=== PATIENT | male | born 1980 | race Caucasian/White ===

== ENCOUNTER 2020-05-26 17:30 | Outpatient (REF) | payer SELFPAY | END 2020-05-26 17:31 | disposition home or self-care (01) | LOC: HO.LAB 17:30 | PROVIDERS: Visit Provider Internal Medicine | DX: Z20.828 Contact with and (suspected) exposure to other viral communicable diseases (principal) | CPT/HCPCS: U0003 ==

== ENCOUNTER 2021-02-09 12:35 | Outpatient (REF) | payer OTHER, SELFPAY ==
[2021-02-09 14:16] LABS: MANUAL DIFF FLAG NO
[2021-02-09 14:21] LABS: Basophils Percent Auto 0.4 % (0-2); Eosinophils Percent Auto 0.4 % (0-4); Hematocrit 45.7 % (42-52); Hemoglobin 15.8 g/dl (14.0-18.0); Imm Gran Abs Auto 0.08 X10*3/uL (0.00-0.03); Imm Gran Pct Auto 0.7 % (0.0-0.4); Lymphocytes Absolute Auto 2.5 X10*3/uL (1.2-4.9); Lymphocytes Percent Auto 22.4 % (20-40); Mean Corpuscular HGB Conc 34.6 g/dl (31.0-36.0); Mean Corpuscular Hemoglobin 31.9 pg (27.0-33.0); Mean Corpuscular Volume 92.3 fL (80-98); Mean Platelet Volume 9.9 fL (9.4-12.4); Monocytes Absolute Auto 0.9 X10*3/uL (0.1-1.2); Monocytes Percent Auto 7.8 % (2-11); Neutrophils Absolute Auto 7.5 X10*3/uL (2.0-8.3); Neutrophils Percent Auto 68.3 % (45-73); Platelet Count 261 X10*3/uL (160-400); Red Blood Count 4.95 X10*6/uL (4.60-5.80); Red Cell Distribution Width 12.1 % (11.0-16.0)
[2021-02-09 14:50] LABS: Alanine Aminotransferase 76 U/L (0-40); Albumin Level 4.3 g/dL (3.5-5.0); Alkaline Phosphatase 93 U/L (39-117); Anion Gap 11 (12-20); Aspartate Amino Transferase 35 U/L (5-37); Bilirubin Total 0.4 mg/dL (0.0-1.0); Blood Urea Nitrogen 10 mg/dL (9-16); Calcium 8.9 mg/dL (8.4-10.2); Carbon Dioxide 24 mmol/L (22-29); Chloride 109 mmol/L (96-108); Estimated Glomerular Filt Rate > 60; Glucose Random 96 mg/dL (60-115); Iron 87 mcg/dL (45-160); Percent Iron Saturation 24 % (15-50); Potassium 4.4 mmol/L (3.3-5.1); Sodium 140 mmol/L (135-145); Total Iron Binding Capacity 359 mcg/dL (228-428); Total Protein 7.4 g/dL (6.5-8.0); Unsaturated Iron Binding 272 ug/dL
[2021-02-09 15:10] LABS: Ferritin 406 ng/mL (20-250)
[2021-02-13 16:12] LABS: Alpha 1 Anti-trypsin 89 mg/dL (83-199); Ceruloplasmin 27 mg/dL (18-36)
== END 2021-02-09 12:36 | disposition home or self-care (01) ==
LOC: HO.LAB 12:35
PROVIDERS: PCP Internal Medicine; Referring Provider Internal Medicine; Visit Provider Physician Assistant
DX: R10.11 Right upper quadrant pain (principal); R74.01 Elevation of levels of liver transaminase levels; E83.00 Disorder of copper metabolism, unspecified; K76.0 Fatty (change of) liver, not elsewhere classified; R79.89 Other specified abnormal findings of blood chemistry; Z78.9 Other specified health status
CPT/HCPCS: 36415; 80053; 82103; 82390; 82728; 83540; 85025; 99212

== ENCOUNTER 2021-05-04 18:17 | Emergency (ER) | payer OTHER, SELFPAY ==
--- NOTE | ~2021-05-04 | XR_ITS ---
EXAMINATION: XR CHEST CLINICAL INFORMATION: Chest pain. COMPARISON: Chest radiograph dated from 02/01/2019. TECHNIQUE: 2 views of the chest were obtained. FINDINGS: Normal appearance of the cardiomediastinal silhouette. Clear lungs. Healing rib fracture within the anterior left seventh rib. No new osseous findings. XR/XR chest 2V IMPRESSION: No acute cardiopulmonary findings.
--- NOTE | 2021-05-04 18:39 | ECG_ITS ---
Test Reason : PALPITATION Blood Pressure : / mmHG Vent. Rate : 081 BPM Atrial Rate : 081 BPM P-R Int : 186 ms QRS Dur : 102 ms QT Int : 378 ms P-R-T Axes : 064 068 034 degrees QTc Int : 439 ms Normal sinus rhythm Intra-ventricular conduction delay Otherwise normal ECG When compared with ECG of 19-AUG-2019 15:05, No significant change was found Referred By: Generic ED Physician Electronically Signed By:VAIBHAV ROGER MD
[2021-05-04 19:19] LABS: Basophils Percent Auto 0.2 % (0-2); Eosinophils Percent Auto 0.3 % (0-4); Hematocrit 44.7 % (42-52); Hemoglobin 15.8 g/dl (14.0-18.0); Imm Gran Abs Auto 0.05 X10*3/uL (0.00-0.03); Imm Gran Pct Auto 0.4 % (0.0-0.4); Lymphocytes Absolute Auto 2.6 X10*3/uL (1.2-4.9); Lymphocytes Percent Auto 20.6 % (20-40); MANUAL DIFF FLAG NO; Mean Corpuscular HGB Conc 35.3 g/dl (31.0-36.0); Mean Corpuscular Hemoglobin 32.4 pg (27.0-33.0); Mean Corpuscular Volume 91.6 fL (80-98); Mean Platelet Volume 9.4 fL (9.4-12.4); Monocytes Absolute Auto 1.1 X10*3/uL (0.1-1.2); Monocytes Percent Auto 8.5 % (2-11); Platelet Count 284 X10*3/uL (160-400); Red Blood Count 4.88 X10*6/uL (4.60-5.80); Red Cell Distribution Width 12.3 % (11.0-16.0); White Blood Count 12.8 X10*3/uL (4.8-10.8)
[2021-05-04 19:33] LABS: Alanine Aminotransferase 69 U/L (0-40); Albumin Level 4.4 g/dL (3.5-5.0); Alkaline Phosphatase 86 U/L (39-117); Anion Gap 15 (12-20); Aspartate Amino Transferase 26 U/L (5-37); Bilirubin Total 0.4 mg/dL (0.0-1.0); Blood Urea Nitrogen 9 mg/dL (9-16); Calcium 9.2 mg/dL (8.4-10.2); Carbon Dioxide 24 mmol/L (22-29); Chloride 107 mmol/L (96-108); Estimated Glomerular Filt Rate > 60; Glucose Random 133 mg/dL (60-115); Potassium 3.5 mmol/L (3.3-5.1); Sodium 142 mmol/L (135-145); Total Protein 7.3 g/dL (6.5-8.0)
[2021-05-04 19:38] LABS: Troponin-I High Sensitivity < 3.5 ng/L (<3.5-35.0)
[2021-05-04 19:47] VITALS: BP 142/66; PULSE 77; RESP 16; TEMP 36.9; O2SAT 93; BMI 33.5
--- NOTE | 2021-05-04 22:34 | ED_ITS ---
HPI - Arrhythmia/Palpitations General Chief Complaint: Arrhythmia/Palpitations Stated Complaint: cp Time Seen by Provider: 05/04/21 22:28 Source: patient Mode of arrival: ambulatory Limitations: no limitations History of Present Illness HPI narrative: Patient comes emergency room complaining of intermittent palpitat ions, and intermittent chest pain with deep inspirations. At this time, patient is asymptomatic. Patient states it usually lasts for a few seconds and then itself resolved. Unrelated to exertion or food intake. Patient's symptoms have been intermittently present for the 3 weeks Related Data Home Medications Medication Instructions Recorded Confirmed fenofibrate micronized 134 mg 134 mg PO DAILY 02/09/21 02/09/21 capsule Allergies Allergy/AdvReac Type Severity Reaction Status Date / Time No Known Allergies Allergy Verified 02/09/21 12:46 [No Known Allergies*] Review of Systems Review of Systems: Constitutional : No Weight loss, No Fever, No Chills, No Night Sweats, No Fatigue, No Malaise ENT/Mouth : No Hearing loss, No Ear Pain, No Nasal Congestion, No Sinus Pain, No Hoarseness, No sore throat, No Rhinorrhea, No Swallowing Difficulty Eyes: No Eye Pain, No Swelling, No Redness, No Foreign Body, No Discharge, No Vision Changes Cardiovascular : Intermittent sharp chest pain lasting for seconds No SOB, No Dyspnea on Exertion, No Orthopnea, no lower extremity edema, complaining of in termittent palpitations, asymptomatic at this time. Respiratory : No Cough, No Sputum, No Wheezing, No Smoke Exposure, No Dyspnea Gastrointestinal : No Nausea, No Vomiting, No Diarrhea, No Constipation, No abdominal Pain, No Hematochezia, No Melena Genitourinary : no irregular bleeding, No Dysuria, No Urinary Frequency, No Hematuria, No Urinary Incontinence, No Urgency, No Flank Pain, No Urinary Flow Changes, No Hesitancy Musculoskeletal : No joint pain, No Myalgias, No Joint Swelling Skin : No Skin Lesions, No rash Neuro : No Weakness, No Numbness, No Paresthesias, No Loss of Consciousness, No Dizziness, No Headache Psych : No Anxiety/Panic, No Depression, No SI/HI/AH/VH, No Social Issues, Heme/Lymph: No Bruising, No Bleeding,No Lymphadenopathy Endocrine : No Polyuria, No Polydipsia, No Temperature Intolerance [facility] Past Medical History Medical History Elevated ferritin Low ceruloplasmin level Family History Family History (Updated 02/09/21 @ 15:20 by Bryanna Lepe PA-C) Maternal Grandmother Diabetes Maternal Aunt Cancer Mother Hepatitis C Social History Social History Household Members Other:: girlfriend Alcohol intake: current Patient Tobacco Use Status: Current everyday Tobacco user Advance Directives: No 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 Oriented X3. No acute distress. Eyes: Pupils equal, round and reactive to light. ENT: Pharynx normal. Neck: Normal inspection. Neck supple. No lymph nodes noted. No crepitus CVS: Normal heart rate and rhythm. Pulses normal. Normal S1 and S2 Respiratory: No respiratory distress. Breath sounds normal. No Wheezing. No rales Abdomen: Soft and nontender. No rigidity. No distention. good BS x4 Skin: Skin warm and dry. Normal skin color. Normal skin turgor. Extremities: No lower extremity edema. No lower extremity edema. No Lacerations. No Rash Neuro: Oriented X 3. No motor deficit. No sensory deficit. Moving all extermities. No slurred speech. Course Course Course Narrative: When patient arrived, in triage labs were obtained. I discussed the labs with the patient and I discussed with him that I would like to obtain a TSH , repeat troponin and a D-dimer. Patient states that he does not want to stay or get more blood work since he needs to return home. Wells score for PE is 0. EKG within normal limits, troponin x1 negative. Patient states that he will follow up with his primary care physician. Also discussed with the patient that if his symptoms return, he may need a Holter monitor or a stress test. MDM - Arrhythmia/Palpitations Lab Data Result diagrams: 05/04/21 19:11 05/04/21 19:11 Labs: Lab Results 05/04/21 05/04/21 05/04/21 Range/Units 19:11 19:11 19:11 WBC 12.8 H (4.8-10.8) X10*3/uL RBC 4.88 (4.60-5.80) X10*6/uL Hgb 15.8 (14.0-18.0) g/dl Hct 44.7 (42-52) % MCV 91.6 (80-98) fL MCH 32.4 (27.0-33.0) pg MCHC 35.3 (31.0-36.0) g/dl RDW 12.3 (11.0-16.0) % Plt Count 284 (160-400) X10*3/uL MPV 9.4 (9.4-12.4) fL Immature Gran % (Auto) 0.4 (0.0-0.4) % Neut % (Auto) 70.0 (45-73) % Lymph % (Auto) 20.6 (20-40) % Stoddard % (Auto) 8.5 (2-11) % Eos % (Auto) 0.3 (0-4) % Baso % (Auto) 0.2 (0-2) % Lymph # (Auto) 2.6 (1.2-4.9) X10*3/uL Stoddard # (Auto) 1.1 (0.1-1.2) X10*3/uL Eos # (Auto) 0.0 (0.0-0.4) X10*3/uL Baso # (Auto) 0.0 (0.0-0.2) X10*3/uL Abs Immat Gran (auto) 0.05 H (0.00-0.03) X10*3/uL Absolute Neuts (auto) 9.0 H (2.0-8.3) X10*3/uL Absolute Nucleated RBC 0.000 (0.0-0.012) X10*3/uL Nucleated RBC % (auto) 0.0 (0.0-0.2) /100WBC Sodium 142 (135-145) mmol/L Potassium 3.5 D (3.3-5.1) mmol/L Chloride 107 (96-108) mmol/L Carbon Dioxide 24 (22-29) mmol/L Anion Gap 15 (12-20) BUN 9 (9-16) mg/dL Creatinine 1.09 (0.5-1.4) mg/dL Estim Creat Clear Calc TNP Estimated GFR > 60 Random Glucose 133 H D (60-115) mg/dL Calcium 9.2 (8.4-10.2) mg/dL Total Bilirubin 0.4 (0.0-1.0) mg/dL AST 26 (5-37) U/L ALT 69 H (0-40) U/L Alkaline Phosphatase 86 (39-117) U/L Troponin I High Sens < 3.5 (<3.5-35.0) ng/L Total Protein 7.3 (6.5-8.0) g/dL Albumin 4.4 (3.5-5.0) g/dL Imaging Data Chest x-ray: Radiologist's impression: Normal appearance of the cardiomediastinal silhouette. Clear lungs. Healing rib fracture within the anterior left seventh rib. No new osseous findings. XR/XR chest 2V IMPRESSION: No acute cardiopulmonary findings. ECG Data Attestation: I personally reviewed and interpreted this ECG as follows: (Normal sinus rhythm, heart rate 81, no ST segment depression or elevation, no T-wave inversion, QTC 439) Discharge Plan Discharge Clinical Impression: Palpitation, Pleurisy Patient Disposition: Home, Self-Care Instructions: Heart Palpitations (ED), Pleurisy (ED) Additional Instructions: Your EKG and cardiac markers are negative. However, you did not want to wait for a repeat troponin, TSH and D-dimer. Please follow-up with your primary care physician tomorrow. If you have any worsening or new symptoms, please return to the emergency room or call 911 Prescriptions: No Action fenofibrate micronized 134 mg capsule 134 mg PO DAILY RF: 0
== END 2021-05-04 22:51 | disposition home or self-care (01) ==
PROVIDERS: Emergency Provider Emergency Medicine; PCP Internal Medicine
DX: R09.1 Pleurisy (principal); R00.2 Palpitations
CPT/HCPCS: 36415; 71046; 80053; 84484; 85025; 93005; 99283

== ENCOUNTER 2021-08-21 10:03 | Outpatient (REF) | payer OTHER, SELFPAY ==
[2021-08-21 11:05] LABS: MANUAL DIFF FLAG NO
[2021-08-21 11:13] LABS: Basophils Absolute Auto 0.1 X10*3/uL (0.0-0.2); Basophils Percent Auto 0.5 % (0-2); Eosinophils Absolute Auto 0.2 X10*3/uL (0.0-0.4); Eosinophils Percent Auto 1.4 % (0-4); Hematocrit 49.5 % (42.0-52.0); Hemoglobin 17.3 g/dl (14.0-18.0); Imm Gran Abs Auto 0.08 X10*3/uL (0.00-0.03); Imm Gran Pct Auto 0.8 % (0.0-0.4); Lymphocytes Absolute Auto 2.3 X10*3/uL (1.2-4.9); Lymphocytes Percent Auto 22.1 % (20-40); Mean Corpuscular HGB Conc 34.9 g/dl (31.0-36.0); Mean Corpuscular Hemoglobin 32.3 pg (27.0-33.0); Mean Corpuscular Volume 92.4 fL (80.0-98.0); Mean Platelet Volume 9.8 fL (9.4-12.4); Monocytes Percent Auto 9.4 % (2-11); Neutrophils Percent Auto 65.8 % (45-73); Platelet Count 236 X10*3/uL (160-400); Red Blood Count 5.36 X10*6/uL (4.60-5.80); Red Cell Distribution Width 12.2 % (11.0-16.0); White Blood Count 10.6 X10*3/uL (4.8-10.8)
[2021-08-21 11:41] LABS: Alanine Aminotransferase 95 U/L (0-40); Albumin Level 4.2 g/dL (3.5-5.0); Alkaline Phosphatase 86 U/L (39-117); Anion Gap 12 (12-20); Aspartate Amino Transferase 40 U/L (5-37); Bilirubin Total 0.5 mg/dL (0.0-1.0); Blood Urea Nitrogen 11 mg/dL (9-16); Calcium 9.6 mg/dL (8.4-10.2); Carbon Dioxide 25 mmol/L (22-29); Chloride 106 mmol/L (96-108); Estimated Glomerular Filt Rate > 60; Glucose Random 118 mg/dL (60-115); Iron 173 mcg/dL (45-160); Percent Iron Saturation 49 % (15-50); Potassium 4.1 mmol/L (3.3-5.1); Sodium 139 mmol/L (135-145); Total Iron Binding Capacity 352 mcg/dL (228-428); Total Protein 7.5 g/dL (6.5-8.0); Unsaturated Iron Binding 179 ug/dL
[2021-08-21 11:55] LABS: Ferritin 393 ng/mL (20-250)
[2021-08-23 13:36] LABS: Ceruloplasmin 29 mg/dL (18-36)
== END 2021-08-21 10:04 | disposition home or self-care (01) ==
LOC: HO.LAB 10:03
PROVIDERS: PCP Internal Medicine; Referring Provider Internal Medicine; Visit Provider Physician Assistant
DX: K76.0 Fatty (change of) liver, not elsewhere classified (principal); R79.89 Other specified abnormal findings of blood chemistry; D64.9 Anemia, unspecified; E83.00 Disorder of copper metabolism, unspecified
CPT/HCPCS: 36415; 80053; 82390; 82728; 83540; 85025; 99202

== ENCOUNTER 2021-08-28 13:04 | Outpatient (REF) | payer OTHER, SELFPAY ==
--- NOTE | ~2021-08-28 | US_ITS ---
EXAMINATION: US ABDOMEN LIMITED WITH LIVER ELASTOGRAPHY CLINICAL INFORMATION: Fatty liver COMPARISON: Previous ultrasound October 2019 TECHNIQUE: Real-time imaging of the abdominal viscera. Noninvasive ultrasound liver fibrosis assessment is performed using Mary ElastPQ point quantification shear wave elastography (2D-SWE) with a C5-2 MHz transducer. Multiple elastography samples are obtained. FINDINGS: PANCREAS: Not well visualized due to bowel gas. LIVER: The liver is upper normal in size. The liver contour is normal. Liver echotexture is increased probably representing fatty infiltration. There is a hypoechoic area adjacent to the gallbladder, a characteristic location of focal fatty sparing. No other focal lesion or intrahepatic biliary duct dilatation. The right lobe measures 18 cm in length. The left lobe measures 11 cm in length. Portal flow is normal/hepatopedal Shear wave liver elastography median stiffness is 1.8 m/s (reference: normal median stiffness is 1.3 m/s or less). IQR/median stiffness to assess sampling precision is 0.11 (reference: good quality data set is IQR/median stiffness of 0.15 or less). GALLBLADDER: Normal. The gallbladder is physiologically distended without evidence of stones, sludge, polyps, wall thickening or pericholecystic fluid. COMMON BILE DUCT: Normal in caliber measuring 0.4 cm in diameter. RIGHT KIDNEY: There is a cyst in the midpole measuring 12 x 6 x 11 mm No hydronephrosis. No renal calculi or mass. The kidney measures 14 cm in maximum dimension. FREE FLUID: None. US/US abdomen dutton w elastography IMPRESSION: 1. Impression: Echogenic liver probably representing fatty aeration. Non visualization of the pancreas. Small right renal cyst. 2. Liver elastography: Adequate liver sampling. Increased liver stiffness suggestive of compensated advanced chronic liver disease but need further test for confirmation. REFERENCE: Society of Radiologists in Ultrasound Liver Stiffness Thresholds (2020): LIVER STIFFNESS THRESHOLDS: *Liver Stiffness equal or less than 1.3 m/s: High probability of being normal. *Liver Stiffness less than 1.7 m/s: In the absence of other known clinical signs, rules out compensated advanced chronic liver disease. *Liver Stiffness 1.7-2.1 m/s: Suggestive of compensated advanced chronic liver disease but need further test for confirmation. *Liver Stiffness over 2.1 m/s: Rules in compensated advanced chronic liver disease. *Liver Stiffness over 2.4 m/s: Suggestive of clinically significant portal hypertension. QUALITY OF DATA SET: *IQR/Median value equal or less than 0.15 implies a quality data set. *IQR/Median value over 0.15 implies a poor quality data set. SIGNIFICANT CHANGE FROM PRIOR EXAM: Significant change if liver stiffness measurement is 10% or greater from prior exam. OTHER CONSIDERATIONS: The stage of liver fibrosis may be overestimated in the setting of acute hepatitis, liver inflammation, elevated liver function tests, hepatic vascular congestion, obstructive cholestasis, non-fasting state, and infiltrative diseases such as amyloidosis and lymphoma. In some patients with NAFLD, the liver stiffness thresholds for compensated advanced chronic liver disease may be lower. In causes other than viral hepatitis and NAFLD, liver stiffness thresholds are not well established.
== END 2021-08-28 13:05 | disposition home or self-care (01) ==
LOC: HO.US 13:04
PROVIDERS: Visit Provider Physician Assistant
DX: K76.0 Fatty (change of) liver, not elsewhere classified (principal); R79.89 Other specified abnormal findings of blood chemistry
CPT/HCPCS: 76705; 76981

== ENCOUNTER 2025-04-19 14:17 | Outpatient (REF) | payer MEDICAID, SELFPAY ==
[2025-04-19 16:10] LABS: MANUAL DIFF FLAG NO
[2025-04-19 16:30] LABS: Hematocrit 47.4 % (42.0-52.0); Hemoglobin 16.9 g/dl (14.0-18.0); Imm Gran Abs Auto 0.04 X10*3/uL (0.00-0.03); Imm Gran Pct Auto 0.4 % (0.0-0.4); Lymphocytes Absolute Auto 2.4 X10*3/uL (1.2-4.9); Mean Corpuscular HGB Conc 35.7 g/dl (31.0-36.0); Mean Corpuscular Hemoglobin 32.1 pg (27.0-33.0); Mean Corpuscular Volume 90.1 fL (80.0-98.0); NRBC Abs Auto 0.000 X10*3/uL (0.0-0.012); NRBC Pct Auto 0.0 /100WBC (0.0-0.2); Platelet Count 169 X10*3/uL (160-400); Red Blood Count 5.26 X10*6/uL (4.60-5.80); White Blood Count 9.4 X10*3/uL (4.8-10.8)
[2025-04-19 16:49] LABS: Alanine Aminotransferase 66 U/L (0-40); Albumin Level 4.6 g/dL (3.5-5.0); Alkaline Phosphatase 99 U/L (39-117); Anion Gap 11 (12-20); Aspartate Amino Transferase 36 U/L (5-37); Blood Urea Nitrogen 11 mg/dL (9-16); Calcium 9.3 mg/dL (8.4-10.2); Carbon Dioxide 29 mmol/L (22-29); Chloride 104 mmol/L (96-108); Cholesterol 215 mg/dL (<200); Estimated Glomerular Filt Rate > 60; HDL Cholesterol 27 mg/dL (>40); Potassium 3.9 mmol/L (3.3-5.1); Sodium 140 mmol/L (135-145); Total Protein 7.9 g/dL (6.5-8.0); Triglycerides 728 mg/dL (<150)
--- OUTSIDE RECORDS SUMMARY | 2025-04-19 16:52 | XMS_ITS | Encounter Summary ---
Author Organization [facility] [employer] 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
[2025-04-20 14:16] LABS: HBS Num1 213.79 mIU/mL (0-7.99); HBc Num1 9.31 S/CO (0.00-0.79); HIV Num 1 0.06 S/CO (0.00-0.99); ~HepC Num1 0.07 S/CO (0.00-0.79); ~Hepatitis B Surface Antibody REACTIVE (Nonreactive); ~Hepatitis C Antibody Nonreactive (Nonreactive)
[2025-04-21 08:46] LABS: HBc Num2 9.58 S/CO; HBc Num3 9.81 S/CO
== END 2025-04-19 14:18 | disposition home or self-care (01) ==
LOC: HO.HHCL 14:17
PROVIDERS: PCP Internal Medicine; Visit Provider General Practice
DX: Z11.3 Encounter for screening for infections with a predominantly sexual mode of transmission (principal); Z11.4 Encounter for screening for human immunodeficiency virus [HIV]; Z11.59 Encounter for screening for other viral diseases; E66.3 Overweight
CPT/HCPCS: 36415; 80053; 80061; 85025; 86592; 86704; 86706; 86803; 87389